=== PATIENT | female | born 1995 | race Caucasian/White ===

== ENCOUNTER 2018-02-02 09:06 | Emergency (ER) | END 2018-02-02 12:29 | disposition home or self-care (01) ==

== ENCOUNTER 2018-07-09 01:51 | Inpatient (IN) | payer BC ==
[~2018-07-09] VITALS: Ht 157.5 cm; Wt 96.3 kg
[~2018-07-09 01:51] MED LIST: NITR-58 PO; PREN-93 PO
[2018-07-09 01:58] VITALS: Ht 157.5 cm; Wt 96.3 kg
[2018-07-09] MEDS ORDERED: LACTATED RINGER'S 1,000 ML IV PRN ×2 (02:14)
[2018-07-09] MEDS ORDERED: IBUPROFEN 600 MG TAB PO PRN (02:30)
[2018-07-09] MEDS ORDERED: OXYTOCIN 30 UNITS/LR 500 ML IV PRN ×2 (02:30→09:30)
[2018-07-09] MEDS ORDERED: MISOPROSTOL 200 MCG TAB PR PRN ×2 (02:30→09:30)
[2018-07-09] MEDS ORDERED: BUTORPHANOL 2 MG INJ IV PRN (02:30)
[2018-07-09] MEDS ORDERED: OXYTOCIN 30 UNITS/LR 500 ML IV SCH ×4 (02:30→09:06)
[2018-07-09] MEDS ORDERED: LIDOCAINE 1% (MPF) 30 ML INJ INJ PRN (02:30)
[2018-07-09] MEDS ORDERED: CARBOPROST 250 MCG INJ IM PRN ×2 (02:30→09:30)
[2018-07-09] MEDS ORDERED: METHYLERGONOVINE 0.2 MG INJ IM PRN ×2 (02:30→09:30)
--- NOTE | 2018-07-09 02:51 | TRIAGE ---
OB Triage Datetime Report Generated by CPN: 07/09/2018 02:51 Datetime: 07/09/2018 02:26 Labor Evaluation Frequency: 2-4 Monitor Mode: External Duration (sec)2399: 60-90 Pattern: Normal: <= 5 Contractions in 10 Minutes Heart Rate FHR Baseline Rate: 125 FHR Baseline Changes: No Baseline Change Variability: Moderate 6-25 bpm Accelerations: 15X15 Datetime: 07/09/2018 02:22 Pain Assessment Pain Scale: 10 Pain Assessment Comments: PATIENT STATES SHE IS NOT READY FOR EPIDURAL AT THIS TIME Datetime: 07/09/2018 02:08 Membrane Status: Ruptured Datetime: 07/09/2018 02:03 Vaginal Exam Dilatation (cms): 3.0 Effacement (%): 70 Station: -2 Exam By: JESSE HANKS Membrane Status: Ruptured Membranes Rupture Method: Spontaneous Amniotic Fluid Color: Clear Amniotic Fluid Amount: Moderate Amniotic Fluid Odor: Normal Vaginal Bleeding: None Pool: Positive Nitrazine: Positive Cervix, Consistency: Moderate Cervix, Position: Midposition Presentation 'A': Cephalic Datetime: 07/09/2018 01:45 Stage of : OB Triage Assessment Type: Triage Maternal Assessment Level of Consciousness: Fully Conscious Headache: Denies Blurred Vision: No Respiratory Effort: Unlabored; Regular Rhythm; Equal Expansion Nausea/Vomiting: Denies RUQ Epigastric Pain: Denies Facial Edema: None Fall Risk Assessment History of Falling: (0) No Secondary Diagnosis: (0) No Ambulatory Aid: (0) Bedrest/Nurse Assist IV Therapy: (0) No Gait: (0) Normal/Bedrest/Immobile Mental Status: (0) Oriented to Own Ability Fall Score: 0 Fall Risk Score Definition: No Risk: No action required Datetime: 07/09/2018 01:43 Time of Arrival: 07/09/2018 01:43 EGA: 39.3 Arrived By: Wheelchair Arrived From: Home Chief Complaint: SROM AND UC'S AT 0100 Movement: Present Contractions: Regular Time Contractions Began: 07/09/2018 01:00 Contractions: Q5 Rupture of Membranes: Ruptured Vaginal Bleeding: None Vaginal Discharge: Denies Recent Sexual Intercouse: Denies Abdominal Trauma: Not Applicable Patient Complaints: Contractions Time Provider Notified: 07/09/2018 02:13 Provider Notified: HADADIAN Initial Plan: EFM, SVE, CALL OB Datetime: 06/26/2018 18:48 EGA: 37.4 Datetime: 06/26/2018 18:46 Fall Score: 0 Fall Risk Score Definition: No Risk: No action required
[2018-07-09] MEDS ORDERED: FENTAnyl 2MCG/ML-ROPIV 0.2% 100 ML ONE (03:44)
--- NOTE | 2018-07-09 03:57 | PREAC ---
Date/Time of Note Date/Time of Note DATE: 07/09/18 TIME: 03:55 Anesthesia Eval and Record Evaluation Time Pre-Procedure Interview DATE: 07/09/18 TIME: 03:17 Age 23 Sex female NPO: 8 hrs Preoperative diagnosis iup @ 39 wks., , labor Planned procedure jonathan Past Medical History Past Medical History: Includes : : (2), Para: (1), Gestational age: (39 wks.) Surgery & Anesthesia Issues No known issue Meds Anticoagulation: No Beta Matthew within 24 hr: No Reason Beta Matthew not given: Pt. not on B-Matthew Reported Medications Nitrofurantoin Monohyd Macrocr* (Macrobid*) 100 Mg Capsr, 100 MG PO BID, CAP 06/26/18 Vit No.124/Iron/FA ( Vitamin Tablet) 1 Each Tablet, 1 EACH PO, TAB 06/26/18 Current Medications Butorphanol Tartrate (Stadol) 2 mg Q2H PRN IV .PAIN; Start 07/09/18 at 02:30 Lidocaine (Xylocaine 1% (Mpf)) 30 ml ONCE PRN INJ .EPISIOTOMY; Start 07/09/18 at 02:30 Oxytocin/Lactated Ringer's 500 ml @ 500 mls/hr ONCE POST IV ; Start 07/09/18 at 02:30 Oxytocin/Lactated Ringer's 500 ml @ 125 mls/hr POST IV ; Start 07/09/18 at 02:30 Ibuprofen (Motrin) 600 mg ONCE PRN PO .PAIN 1-5; Start 07/09/18 at 02:30 Lactated Ringer's 1,000 ml @ 2,000 mls/hr Q30M PRN IV .ANESTHESIA; Start 07/09/18 at 02:14 Oxytocin/Lactated Ringer's 500 ml @ 0 mls/hr ONCE PRN IV .VAGINAL BLEEDING; Start 07/09/18 at 02:30 Methylergonovine Maleate (Methergine) 0.2 mg ONCE PRN IM .VAGINAL BLEEDING; Start 07/09/18 at 02:30 Carboprost Tromethamine (Hemabate) 250 mcg ONCE PRN IM .VAGINAL BLEEDING; Start 07/09/18 at 02:30 Misoprostol (Cytotec) 1,000 mcg ONCE PRN TN .VAGINAL BLEEDING; Start 07/09/18 at 02:30 Oxytocin/Lactated Ringer's 500 ml @ 0 mls/hr FOR AUGMENTATION IV ; Start 07/09/18 at 02:30 Lactated Ringer's 1,000 ml @ 125 mls/hr Q8H IV ; Start 07/09/18 at 02:14 Lactated Ringer's 1,000 ml @ 2,000 mls/hr Q30M PRN IV .ANESTHESIA; Start 07/09/18 at 02:14 Meds reviewed: Yes Allergies Coded Allergies: No Known Allergy (Unverified , 06/26/18) Allergies Reviewed: Yes Labs/Studies Labs Reviewed: Reviewed by anesthesiologist Result Diagram: 07/09/18 0230 Laboratory Tests 07/09/18 02:30 test: Positive Studies: ECG (n/a), CXR (n/a) Pre-procedure Exam Airway: Adequate mouth opening, Adequate thyromental dist Mallampati: Mallampati II Teeth: Normal Lung: Normal Heart: Normal ASA Physical Status ASA physical status: 2 Emergency: E Planned Anesthetic Neuraxial: Epidural Planned Pain Management Local by surgeon Pre-operative Attestations Prior to commencing anesthesia and surgery, the patient was re-evaluated, there was verification of: *The patient's identity *The results of appropriate recent lab work and preoperative vital signs *The above evaluation not changing prior to induction *Anesthetic plan, risk benefits, alternative and complications discussed with patient/family; questions answered; patient/family understands, accepts and wishes to proceed. [employer]agliding Instructor used RAJI LOPEZ MD Jul 09, 2018 03:57
--- NOTE | 2018-07-09 03:58 | PAC ---
Date/Time of Note Date/Time of Note DATE: 07/10/18 TIME: 07:00 Post-Anesthesia Notes Post-Anesthesia Note Activity: WNL Respiratory function: WNL Cardiovascular function: WNL Mental status: Baseline Pain reasonably controlled: Yes Hydration appropriate: Yes Nausea/Vomiting absent: Yes RAJI LOPEZ MD Jul 09, 2018 03:58
[2018-07-09] MEDS ORDERED: FENTAnyl 2MCG/ML-ROPIV 0.2% 100 ML BAG EPI SCH (04:00)
[2018-07-09] MEDS ORDERED: NALOXONE (0.4 MG/ML) INJ IV PRN (04:00)
[2018-07-09] MEDS: LACTATED RINGER'S 1,000 ML IV SCH ×2 (04:11→06:22)
[2018-07-09] MEDS ORDERED: LACTATED RINGER'S 1,000 ML IV* SCH (09:06)
--- NOTE | 2018-07-09 09:06 | LDN ---
Date/Time of Note Date/Time of Note DATE: 07/09/18 TIME: 09:05 Delivery Summary Placenta Delivered: Spontaneously Meconium: none Episiotomy: No Laceration repair: 1st degree and right labial laceration reapproximated with 3-0 chromic Anesthesia type: Epidural Sponge & Needle done & correct: Yes All needle counts correct: Yes Any foreign bodies felt in the: No Delivery Information Sex Sex: female Apgars 1 Minute: 9 5 Minute: 9 Suctioning Nose & mouth suctioned at delia: Yes Umbilical Cord Umbilical cord with: 3 Vessels Cord presentations: nuchal cord Cord Blood was obtained: Yes Mother & Baby Disposition Disposition Mom & Baby to Maternity; Good: Yes BARRINGTON PAEZ Jul 09, 2018 09:06
[2018-07-09] MEDS ORDERED: DIBUCAINE 1% 30 GM OINT TOP PRN (09:30)
[2018-07-09] MEDS ORDERED: LANOLIN HPA 1 PKT TOP PRN (09:30)
[2018-07-09] MEDS ORDERED: HYDROCODONE/APAP (5/325) TAB PO PRN (09:30)
[2018-07-09] MEDS ORDERED: WITCH HAZEL/GLYCERIN PAD PR PRN (09:30)
[2018-07-09] MEDS ORDERED: BENZOCAINE 20% 56 ML SPRAY TOP PRN (09:30)
[2018-07-09 11:45] VITALS: BP 107/58; PULSE 98; RESP 18
[2018-07-09] MEDS: IBUPROFEN 600 MG TAB PO SCH ×3 (12:50→23:56)
[2018-07-09 14:05] VITALS: BP 97/55; PULSE 79; RESP 20
[2018-07-09 16:18] VITALS: BP 99/58; PULSE 73; RESP 20
[2018-07-09 20:00] VITALS: BP 117/77; PULSE 99; RESP 18
[2018-07-09] MEDS: HYDROCODONE/APAP (5/325) TAB PO PRN (20:12)
[2018-07-10 03:38] VITALS: BP 91/54; PULSE 76; RESP 20
[2018-07-10] MEDS: IBUPROFEN 600 MG TAB PO SCH ×4 (06:00→23:59)
[2018-07-10 08:00] VITALS: BP 92/56; PULSE 82; RESP 20
--- NOTE | 2018-07-10 08:10 | PN ---
Date/Time of Note Date/Time of Note DATE: 07/10/18 TIME: 08:08 OB Subjective Subjective Subjective PPD# 1 Patient is doing well. She denies nausea, vomiting, shortness of breath, chest pain, headache. She has been ambulating without difficulty, tolerating regular diet. Pain is well controlled on current medications OB Objective Objective Objective VS - Last 72 Hours, by Label Date Temp Pulse Resp B/P (MAP) Pulse Ox O2 O2 Flow FiO2 Time Delivery Rate 07/10/18 97.8 76 20 91/54 (66) Room Air 03:38 07/09/18 97.9 99 18 117/77 Room Air 20:00 (90) 07/09/18 98.6 73 20 99/58 (72) Room Air 16:18 07/09/18 98.9 79 20 97/55 (69) Room Air 14:05 07/09/18 100.0 12:50 07/09/18 99.1 98 18 107/58 Room Air 11:45 (74) General: AAO X 3, comfortable, NAD, appropriate mood and affect. ABD: +BS. Soft, non-tender. Uterus 2 cm below umbilicus Flank: No CVA tenderness (B/L) LE: Mild edema. No clubbing, cyanosis, thigh or calf tenderness (B/L). Homans 'sign is negative OB Assessment/Plan Other plan: 23 years old s/p normal vaginal delivery. PPD#1 - AF, VSS - Baby is doing well, at bed side. She is bonding well - Contraception methods with R/B/A/FR discussed - Continue care - Discharge home tomorrow - Rx and instruction given - Follow up in 2 and 6 weeks at clinic TAM ROWAN Jul 10, 2018 08:10
--- NOTE | 2018-07-10 08:13 | HP ---
Date/Time of Note Date/Time of Note DATE: 07/10/18 TIME: 08:10 OB - History Hx of Present Free Text/Dictation 23 with single intrauterine at 39 weeks and 3 days with LUCY of 07/13/2018 complaining of uterine contractions. She states good movement. She denies nausea, vomiting, shortness of breath, chest pain, headache, visual changes, vaginal bleeding or LOF. Chief Complaint: Uterine contractions Estimated Due Date: Jul 13, 2018 : 2 Para: 1 Spontaneous : 0 Therapeutic : 0 Care: Good Care Ultrasounds: Normal mid trimester US Obstetrical Complications: None Medical Complications: None Past Family/Social History * Past Medical, Surgical, Family and Obstetric Histories reviewed from [facility]. Blood Type: A+ Rubella: immune RPR/VDRL: Negative GBS Status: Negative HBsAG: Negative OB Admission Exam Vital Signs Vital Signs Vital Signs Date Temp Pulse Resp B/P (MAP) Pulse Ox O2 O2 Flow FiO2 Time Delivery Rate 07/10/18 97.8 76 20 91/54 (66) Room Air 03:38 Physical Exam HEENT: WNL Heart: Rhythm Normal Lungs: Clear Abdomen: WNL Extremities: Normal Cervical Dilatation: 2cm Effacement: 75% Station: -2 Membranes: Intact Heart Rate: 130's Accelerations: Accelerations Present Decelerations: No Decelerations Varibility: Moderate Last 72 hours Lab Results CBC & BMP 07/09/18 02:30 07/10/18 06:24 OB Assessment/Plan Other plan: 23 years old 2 para 1001 at 39 weeks and 3 days in labor - FHR: No sign of metabolic acidosis- Category I - Continuous EFM, toco - CBC, blood type and screen - Analgesia options with R/B/A discussed in detail with patient - Epidural per patient request - Please see the orders - A+/Rubella: Immune - GBS: Negative Admission, procedures, expectations, risks and possible complications have been discussed in detail with the patient. Risk of vaginal delivery including but not limited to bleeding, infection, cervical laceration, placental retention, injury to fetus, blood transfusion, blood transfusion related infection, risk of anesthesia, adhesion, cervical laceration, episiotomy/laceration, possible delivery with risk of bleeding, infection, injury to other organs (bowel, bladder, ureter, vessels, nerves), injury to fetus, blood transfusion, blood transfusion related infection, risk of anesthesia, scar and hernia formation, needs for future , removal of uterus or any other indicated surgery discussed with the patient. She expressed understanding and repeats the risks. All of her questions were answered. She signed the informed consent. PHYSICIAN'S VERIFICATION OF INFORMED CONSENT The patient was counseled regarding the procedure, its indications, risks, potential complications and alternatives and any questions were answered. Consent was obtained. PLANNED PROCEDURE/TREATMENT: Vaginal delivery, episiotomy, repair of laceration possible delivery Late entry note TAM ROWAN Jul 10, 2018 08:13
--- NOTE | 2018-07-10 08:20 | DS ---
Date/Time of Note Date/Time of Note DATE: 07/10/18 TIME: 08:20 Obstetrical Discharge Record Final Diagnosis Final Diagnosis: Term delivered Other Final Diagnosis She has been ambulating and tolerating regular diet. She is voiding without difficulty. She had bowel movement. Pain is controlled on current medication. - AF, VSS - Baby is doing well, at bed side. She is bonding well - Contraception methods with R/B/A/FR discussed - Continue care - Discharge home - Prescription and instruction given - Follow-up in 1 and 6 weeks Condition on Discharge Physical Assessment Voiding: Yes Bowel Movement: Yes Breast: Soft, non-tender Fundus: Firm Calf Tenderness: No Patient Condition: Stable TAM ROWAN Jul 10, 2018 08:20
[2018-07-10] MEDS: MAGNESIUM HYDROXIDE 30ML CUP PO SCH (08:27)
[2018-07-10 16:13] VITALS: BP 93/55; PULSE 79; RESP 18
[2018-07-10 20:05] VITALS: BP 103/59; PULSE 81; RESP 18
[2018-07-10] MEDS: HYDROCODONE/APAP (5/325) TAB PO PRN (21:31)
[2018-07-11 03:42] VITALS: BP 99/58; PULSE 71; RESP 17
[2018-07-11] MEDS: IBUPROFEN 600 MG TAB PO SCH ×2 (05:43→12:20)
[2018-07-11 08:00] VITALS: BP 100/68; PULSE 73; RESP 18
[2018-07-11] MEDS ORDERED: VARICELLA VACCINE LIVE/PF 1,350 UNIT/0.5 ML ML SC* ONE (09:00)
[2018-07-11] MEDS: MAGNESIUM HYDROXIDE 30ML CUP PO SCH (09:00)
[2018-07-11] MEDS ORDERED: MEASLES,MUMPS,RUBELLA VACCINE INJ SC* ONE (09:00)
[2018-07-11] MEDS ORDERED: DIPHTH/TET/ACEL PERTUSS (ADULT) 0.5 ML VIAL IM* ONE (09:00)
[2018-07-11 16:00] VITALS: BP 106/66; PULSE 70; RESP 18
== END 2018-07-11 18:21 | disposition home or self-care (01) | DRG 807 ==
LOC: OBT 01:51 → L-D 01:52 → OBT 02:08 → PP1 14:33
PROVIDERS: ADMIT Obstetrics & Gynecology; ATTEND Obstetrics & Gynecology
PROC: 10E0XZZ Delivery of Products of Conception, External Approach (ICD-10-PCS; principal; 2018-07-09)
DX: O70.0 First degree perineal laceration during delivery (principal); Z37.0 Single live birth; Z3A.39 39 weeks gestation of pregnancy; O69.81X0 Labor and delivery complicated by cord around neck, without compression, not applicable or unspecified
CPT/HCPCS: 62319; 85025; 85610; 85730; 86592; 86850; 86900; 86901; 87340; 88307; 90716; 99464; G0463; J2590; J3010; J7120